=== PATIENT | female | born 2000 | race Two or more races ===

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

== ENCOUNTER → 2019-04-12 | Outpatient (CLI) | payer OTHER | END | disposition home or self-care (01) | LOC: PRENATAL 10:12 | DX: O35.3XX0 Maternal care for (suspected) damage to fetus from viral disease in mother, not applicable or unspecified (principal); O99.213 Obesity complicating pregnancy, third trimester ==

== ENCOUNTER 2019-04-21 16:14 | Outpatient (CLI) | payer OTHER | END 2019-04-22 18:40 | disposition home or self-care (01) | LOC: OBS/DEL 16:14 | DX: O76 Abnormality in fetal heart rate and rhythm complicating labor and delivery (principal) ==

== ENCOUNTER → 2019-04-21 | Outpatient (CLI) | payer OTHER | END | disposition home or self-care (01) | LOC: PRENATAL 13:00 | DX: O36.8131 Decreased fetal movements, third trimester, fetus 1 (principal) ==

== ENCOUNTER 2019-06-02 16:00 | Inpatient (IN) | payer OTHER ==
[~2019-06-02] VITALS: Ht 160 cm; Wt 106.1 kg
[2019-06-03] MEDS ORDERED: PRENATAL TABLE1 EAC3 PO (17:01)
== END 2019-06-04 20:03 | disposition home or self-care (01) | DRG 833 ==
LOC: OBS/DEL 16:00 → LDR 06-03 15:37
PROVIDERS: ADMIT Obstetrics & Gynecology
PROC: BY4FZZZ Ultrasonography of Third Trimester, Single Fetus (ICD-10-PCS; principal; 2019-06-04)
DX: O14.03 Mild to moderate pre-eclampsia, third trimester (principal); Z3A.37 37 weeks gestation of pregnancy

== ENCOUNTER 2019-06-07 10:33 | Inpatient (IN) | payer OTHER ==
[~2019-06-07] VITALS: Ht 157.5 cm; Wt 108.4 kg
[~2019-06-07 10:33] MED LIST: PRENATAL TABLE1 EAC3 PO
[2019-06-08] MEDS ORDERED: CLARITIN10 MG (08:09)
[2019-06-08] MEDS ORDERED: NEO-POLYMYXIN-H10 M1 (08:09)
[2019-06-08] MEDS ORDERED: MUPIROCIN22 GM (08:10)
[2019-06-08] MEDS ORDERED: AMOX1TAB5 (08:10)
[2019-06-08] MEDS ORDERED: ECONAZOLE NITRA30 GM (08:10)
== END 2019-06-10 13:33 | disposition home or self-care (01) | DRG 807 ==
LOC: LDR 10:33 → OB/GYN 10:33
PROVIDERS: ADMIT Obstetrics & Gynecology
PROC: 3E0P7VZ Introduction of Hormone into Female Reproductive, Via Natural or Artificial Opening (ICD-10-PCS; 2019-06-07)
PROC: 3E033VJ Introduction of Other Hormone into Peripheral Vein, Percutaneous Approach (ICD-10-PCS; 2019-06-07)
PROC: 10907ZC Drainage of Amniotic Fluid, Therapeutic from Products of Conception, Via Natural or Artificial Opening (ICD-10-PCS; 2019-06-07)
PROC: 4A1HXCZ Monitoring of Products of Conception, Cardiac Rate, External Approach (ICD-10-PCS; 2019-06-07)
PROC: 10E0XZZ Delivery of Products of Conception, External Approach (ICD-10-PCS; principal; 2019-06-08)
PROC: 0HQ9XZZ Repair Perineum Skin, External Approach (ICD-10-PCS; 2019-06-08)
DX: O70.0 First degree perineal laceration during delivery (principal); Z37.0 Single live birth; Z3A.37 37 weeks gestation of pregnancy

== ENCOUNTER 2021-07-19 08:22 | Outpatient (CLI) | payer OTHER ==
[~2021-07-19 08:22] MED LIST changes: +AMOX1TAB5; +CLARITIN10 MG; +ECONAZOLE NITRA30 GM; +MUPIROCIN22 GM; +NEO-POLYMYXIN-H10 M1
== END 2021-07-19 08:24 | disposition home or self-care (01) ==
LOC: SONOGRAMA 08:22
PROVIDERS: ATTEND Pathology Anatomic Pathology & Clinical Pathology
DX: E04.1 Nontoxic single thyroid nodule (principal)